=== PATIENT | male | born 1965 | race Two or more races ===

== ENCOUNTER 2016-08-30 14:03 | Emergency (ER) | payer OTHER ==
[~2016-08-30] VITALS: Ht 175.3 cm; Wt 83.2 kg
[2016-08-30 14:05] VITALS: BP 153/94
[2016-08-30] MEDS ORDERED: DIPH,PERTUSS(ACELL),TET VAC/PF 0.5 ML IM-VACC ONE ×2 (14:24→14:30)
[2016-08-30] MEDS ORDERED: LIDOCAINE 1%, 20ML ONE (14:24)
[2016-08-30] MEDS ORDERED: LIDOCAINE 1%, 20ML INFIL ONE (14:30)
[2016-08-30] MEDS ORDERED: HYDROcodone/APAP 5/325 TABLET ONE (15:25)
[2016-08-30] MEDS ORDERED: HYDROcodone/APAP 5/325 TABLET PO ONE (15:30)
[2016-08-30] MEDS ORDERED: BACITRACIN ZINC OINT 500U/GM, 0.9 GM ONE (15:41)
== END 2016-08-30 16:07 | disposition home or self-care (01) ==
LOC: ED 15:40
DX: S61.217A Laceration without foreign body of left little finger without damage to nail, initial encounter (principal); X58.XXXA Exposure to other specified factors, initial encounter; Y93.89 Activity, other specified; Y92.89 Other specified places as the place of occurrence of the external cause; Y99.8 Other external cause status
CPT/HCPCS: 12002; 90471; 90715

== ENCOUNTER 2016-09-08 15:25 | Emergency (ER) | payer OTHER ==
[~2016-09-08] VITALS: Ht 175.3 cm; Wt 82.6 kg
[2016-09-08 15:26] VITALS: BP 153/77
[2016-09-08] MEDS ORDERED: BACITRACIN ZINC OINT 500U/GM, 0.9 GM ONE (16:31)
== END 2016-09-08 17:10 | disposition home or self-care (01) ==
LOC: ED 16:45
DX: S61.217D Laceration without foreign body of left little finger without damage to nail, subsequent encounter (principal); X58.XXXD Exposure to other specified factors, subsequent encounter
CPT/HCPCS: 99281; 99283